=== PATIENT | male | born 1990 | race Two or more races ===

== ENCOUNTER 2025-03-06 11:05 | Inpatient (IN) | payer MEDICAID, OTHER ==
[~2025-03-06] VITALS: Ht 180.3 cm; Wt 162.4 kg
--- NOTE | 2025-03-06 11:25 | ED.PDOC ---
History of Present Illness HPI Comments 34-YEAR-OLD MALE WITH A CHIEF COMPLAINT OF A WOUND CHECK. PATIENT REPORTS ON FALLING ONTO A METAL TOOL LEAVING ABRASIONS ON HIS LEFT KNEE. PATIENT CAME IN WANTING TO GET A TETANUS SHOT IN TRIAGE THEY STATED THAT HE HAD HIGH BLOOD PRESSURE. DENIES CHILLS, FEVER, N/V/D, SOB, CP. NO OTHER ASSOCIATED SYMPTOMS, MODIFIERS, RECENT INJURIES OR SICK CONTACTS PRESENT AT THIS TIME. Chief Complaint: Wound Check Time Seen by MD: 11:30 Reviewed Notes: Nurses Notes, Medications, Allergies Allergies: Coded Allergies: NO KNOWN ALLERGIES (Unverified , 03/06/25) Information Source: Patient Mode of Arrival: Ambulatory Severity: Moderate Timing: Minutes Duration: Since onset Prehospital treatment: None Past Medical History PAST MEDICAL HISTORY: Denies Surgical History: Denies all surgeries Family History Family History: Reviewed,noncontributory to illness, Unknown Social History Smoker: Non-Smoker Alcohol: Denies ETOH Use Drugs: Denies Drug Use Lives In: Home Constitutional: denies: chills, diaphoresis, fatigue, fever, malaise, sweats, weakness, others EENTM: denies: blurred vision, double vision, ear bleeding, ear discharge, ear drainage, ear pain, ear ringing, eye pain, eye redness, hearing loss, mouth pain, mouth swelling, nasal discharge, nose bleeding, nose congestion, nose pain, photophobia, tearing, throat pain, throat swelling, voice changes, others Respiratory: denies: cough, hemoptysis, orthopnea, SOB at rest, shortness of breath, SOB with excertion, stridor, wheezing, others Cardiovascular: denies: chest pain, dizzy spells, diaphoresis, Dyspnea on exertion, edema, irregular heart beat, left arm pain, lightheadedness, palpitations, PND, syncope, others Gastrointestinal: denies: abdomen distended, abdominal pain, blood streaked bowels, constipated, diarrhea, dysphagia, difficulty swallowing, hematemesis, me ayaan, nausea, poor appetite, poor fluid intake, rectal bleeding, rectal pain, vomiting, others Genitourinary: denies: burning, dysuria, flank pain, frequency, hematuria, incontinence, penile discharge, penile sore, pain, testicle pain, testicle swelling, urgency, others Neurological: denies: dizziness, fainting, headache, left sided numbness, left sided weakness, numbness, paresthesia, pre-existing deficit, right sided numbness, right sided weakness, seizure, speech problems, tingling, tremors, weakness, others Musculoskeletal: denies: back pain, gout, joint pain, joint swelling, muscle pain, muscle stiffness, neck pain, others Integumetry: reports: others (ABRASION ON THE LEFT KNEE); denies: bruises, change in color, change in hair/nails, dryness, laceration, lesions, lumps, rash, wounds Allergic/Immunocompromised: denies: Difficulty Healing, Frequent Infections, Hives, Itching, others Hematologic/Lymphatic: denies: anemia, blood clots, easy bleeding, easy bruising, swollen glands, others Endocrine: denies: excessive hunger, excessive sweating, excessive thirst, excessive urination, flushing, intolerance to cold, intolerance to heat, unexplained weight gain, unexplained weight loss, others Psychiatric: denies: anxiety, bipolar disorder, depression, hopeless, panic disorder, schizophrenia, sleepless, suicidal, others All Other Systems: Reviewed and Negative Physical Exam General Appearance: No Apparent Distress, Normal HEENT: Normal ENT Inspection, Pharynx Normal, TMs Normal Neck: Full Range of Motion, Non-Tender, Normal, Normal Inspection Respiratory: Chest Non-Tender, Lungs Clear, No Accessory Muscle Use, No Respiratory Distress, Normal Breath Sounds Cardiovascular: No Edema, No JVD, No Murmur, No Gallop, Normal Peripheral Pulses, Regular Rate/Rhythm Breast Exam: Deferred Gastrointestinal: No Organomegaly, Non Tender, No Pulsatile Mass, Normal Bowel Sounds, Soft Genitalia: Deferred Pelvic: Deferred Rectal: Deferred Extremities: No calf tenderness, Normal capillary refill, Normal inspection, Normal range of motion, Non-tender, No pedal edema Musculoskeletal : Apperance: Normal Neurologic: Alert, environmental coordinator II-XII nml as Tested, No Motor Deficits, Normal Affect, Normal Mood, No Sensory Deficits Cerebellar Function: Normal Reflexes: Normal Skin: Dry, Normal Color, Warm Lymphatic: No Adenopathy Was a procedure done? Was a procedure done?: No Differential Dx Considerations may include: Hypertensive emergency, viral syndrome, diabetes, dehydration X-Ray, Labs, Meds, VS Vital Signs Date Time Temp Pulse Resp B/P (MAP) Pulse Ox O2 Delivery O2 Flow Rate FiO2 03/06/25 14:14 105 10 98 Room Air* 0 21 03/06/25 14:14 98.3 105 10 216/131 (159) 98 98.3 03/06/25 14:11 208/143 (164) 03/06/25 14:09 97.9 99 19 199/132 (154) 96 97.9 03/06/25 14:09 99 19 96 Room Air 03/06/25 14:00 107 03/06/25 13:53 223/149 03/06/25 11:06 98.7 108 17 205/121 97 98.7 Lab Test 03/06/25 13:22 Range/Units White Blood Count 11.2 H 4.4-10.8 10^3/uL Red Blood Count 6.34 H 4.5-5.90 10^6/uL Hemoglobin 16.3 13.5-17.5 g/dL Hematocrit 49.3 41.0-53.0 % Mean Corpuscular Volume 77.8 L 80.0-100.0 fL Mean Corpuscular Hemoglobin 25.7 L 28.0-32.0 pg Mean Corpuscular Hemoglobin Concent 33.0 32.0-36.0 g/dL Red Cell Distribution Width 14.2 11.8-14.3 % Platelet Count 308 140-450 10^3/uL Mean Platelet Volume 8.9 6.9-10.8 fL Neutrophils (%) (Auto) 75.6 37.0-80.0 % Lymphocytes (%) (Auto) 18.3 10.0-50.0 % Monocytes (%) (Auto) 4.6 0.0-12.0 % Eosinophils (%) (Auto) 1.3 0.0-7.0 % Basophils (%) (Auto) 0.2 0.0-2.0 % Neutrophils # (Auto) 8.4 1.6-8.6 10 ^3/uL Lymphocytes # (Auto) 2.0 0.4-5.4 10 ^3/uL Monocytes # (Auto) 0.5 0-1.3 10 ^3/uL Eosinophils # (Auto) 0.1 0-0.8 10 ^3/uL Basophils # (Auto) 0 0-0.2 10 ^3/uL Nucleated Red Blood Cells 0.1 % Sodium Level 135 L 136-145 mmol/L Potassium Level 3.1 L 3.5-5.1 mmol/L Chloride Level 96 L 98-107 mmol/L Carbon Dioxide Level 28 20-31 mmol/L Anion Gap 11 5-15 Blood Urea Nitrogen 6 L 9-23 mg/dL Creatinine 0.98 0.700-1.30 mg/dL Glomerular Filtration Rate Calc 104 >90 mL/min BUN/Creatinine Ratio 6.1 L 10.0-20.0 Serum Glucose 423 *H 74-106 mg/dL Calcium Level 9.7 8.7-10.4 mg/dL Troponin I High Sensitivity 20 </=54 ng/L Current Medications Medications (Trade) Dose Ordered Sig/Carla Route Start Time Stop Time Status Last Admin Diphtheria/ Tetanus/Acell Pertussis (Boostrix T-Dap) 0.5 ml ONCE ONCE IM 03/06/25 13:15 03/06/25 13:16 DC 03/06/25 13:51 Hydralazine HCl (Apresoline Injection) 10 mg ONCE ONCE IV 03/06/25 13:45 03/06/25 13:46 DC 03/06/25 13:53 Time of 1ST Reevaluation: 12:00 Reevaluation 1ST: Unchanged Patient Education/Counseling: Diagnosis, Treatment, Prognosis Family Education/Counseling: No Family Present SEPSIS Sepsis Screen Date sepsis recognized/suspect: Mar 06, 2025 Time Sepsis recognized/suspect: 1107 Recent Procedure: No On Antibiotic Therapy: No Respiratory Rate >20: No Heart Rate >90: Yes Temp<36 C (96.8 F) or >38.3 C: No SBP <90 or MAP <65 mmHG: No New Acute Mental Status Change: No Is the patient on CPAP, BIPAP,: No Physician Orders L Knee 3v Xray (03/06/25 13:01) Chest Portable (03/06/25 13:01) Troponin-I Hs (03/06/25 14:01) Troponin-I Hs (03/06/25 16:01) Electrocardigram (03/06/25 14:01) Electrocardigram (03/06/25 16:01) Head Without Contrast (03/06/25 13:34) Hydralazine Injection (Apresoline Inject (03/06/25 15:00) NS (03/06/25 15:00) Vital Signs Date Time Temp Pulse Resp B/P (MAP) Pulse Ox O2 Delivery O2 Flow Rate FiO2 03/06/25 14:14 105 10 98 Room Air* 0 21 03/06/25 14:14 98.3 105 10 216/131 (159) 98 98.3 03/06/25 14:11 208/143 (164) 03/06/25 14:09 97.9 99 19 199/132 (154) 96 97.9 03/06/25 14:09 99 19 96 Room Air 03/06/25 14:00 107 03/06/25 13:53 223/149 03/06/25 11:06 98.7 108 17 205/121 97 98.7 Laboratory Tests Test 03/06/25 13:22 White Blood Count 11.2 10^3/uL (4.4-10.8) H Medications Medications Dose Ordered Sig/Carla Route Start Time Stop Time Status Last Admin Dose Admin Diphtheria/ Tetanus/Acell Pertussis 0.5 ml ONCE ONCE IM 03/06/25 13:15 03/06/25 13:16 DC 03/06/25 13:51 Hydralazine HCl 10 mg ONCE ONCE IV 03/06/25 13:45 03/06/25 13:46 DC 03/06/25 13:53 Departure 1 Departure Time of Disposition: 14:59 (Patient presented with hypertension and symptoms concerning for hypertensive emergency. Patient is receiving iv blood pressure medications requiring intensive monitoring. Data: 1. I ordered and reviewed the result of at least 3 labs including a CBC, BMP, and Urinalysis. 2. I independently interpreted the following tests: CT Brain: Which appears benign. EKG which is Normal Sinus RhythmRisk:This patient has a high risk of morbidity due to further diagnostic testing or treatment and may suffer from an acute cardiac disorder. Workup reveals hypertensive emergency and patient should be admitted for further workup. and possible expert consultation. ) Impression: Primary Impression: Hypertensive emergency Additional Impressions: Abnormal head CT New onset type 2 diabetes mellitus Disposition: ADMITTED INPATIENT Admit to: Tele Condition: Guarded Critical Care Note Critical Care Time?: Yes Critical care comment: Hypertensive urgency Authorized and Performed by: Vianey Mullins MD Total critical care time: Approximately 39 minutes Due to a high probability of clinically significant, life threatening deterioration, the patient required my highest level of preparedness to inter vene emergently and I personally spent this critical care time directly and personally managing the patient. This critical care time included obtaining a history; examining the patient; pulse oximetry; ordering and review of studies; arranging urgent treatment with development of a management plan; evaluation of patient's response to treatment; frequent reassessment; and, discussions with other providers. This critical care time was performed to assess and manage the high probability of imminent, life-threatening deterioration that could result in multi-organ failure. It was exclusive of separately billable procedures and treating other patients and teaching time. Please see my other sections and the rest of the note for further information on patient assessment and treatment. Stability Stability form required: No I personally scribed for VIANEY MULLINS MD ([email or web address]) on 03/06/25 at 11:25. Electronically submitted by Gus Cesar ([email or web address]). VIANEY MULLINS MD Mar 06, 2025 11:25
[2025-03-06 13:40] LABS: Hematocrit 49.3 % (41.0-53.0); Hemoglobin 16.3 g/dL (13.5-17.5); Mean Corpuscular Hemoglobin 25.7 pg (28.0-32.0); Mean Corpuscular Volume 77.8 fL (80.0-100.0); Nucleated Red Blood Cells % 0.1 %
--- NOTE | 2025-03-06 13:42 | DVH ---
CLINICAL INDICATION: left knee pain TECHNIQUE: 3 radiographic views of the left knee were obtained. Comparison: None FINDINGS/IMPRESSION: There is no evidence of acute fracture or dislocation. The visualized joint space is well maintained. Trace left knee effusion. The alignment is anatomical. There is no radiopaque foreign body.
[2025-03-06 13:48] LABS: Anion Gap 11 (5-15); Calcium 9.7 mg/dL (8.7-10.4); Carbon Dioxide 28 mmol/L (20-31)
[2025-03-06 13:51] LABS: Chloride 96 mmol/L (98-107); Potassium 3.1 mmol/L (3.5-5.1); Sodium 135 mmol/L (136-145)
[2025-03-06] MEDS: TETANUS-DIPTH-ACEL PERTUSSIS 0.5ML SYR Tdap IM ONE (13:51)
[2025-03-06 13:53] LABS: BUN/Creatinine Ratio 6.1 (10.0-20.0)
[2025-03-06] MEDS: hydrALAZINE HCL 20 MG/ML VL IV ONE ×2 (13:53→15:19)
[2025-03-06 13:54] LABS: Blood Urea Nitrogen 6 mg/dL (9-23)
[2025-03-06 13:55] LABS: Glucose 423 mg/dL (74-106)
--- NOTE | 2025-03-06 13:58 | DVH ---
INDICATION: htn TECHNIQUE: Frontal view of the chest. COMPARISON: None FINDINGS: . The heart and mediastinal contours are grossly unremarkable. There is no evidence of pleural disea se. The lungs are clear. The bony structures of the chest are intact without fracture. IMPRESSION: 1. No evidence of acute disease.
[2025-03-06 14:14] VITALS: PULSE 105; RESP 10; O2SAT 98
--- NOTE | 2025-03-06 14:18 | DVH ---
EXAM: CT HEAD WITHOUT CONTRAST INDICATION: htn TECHNIQUE: CT images of the head were obtained without administration of IV contrast. CT scans at [facility] facility use dose modulation, iterative reconstruction, and/or weight based dosing when appropriate to reduce radiation dose to as low as reasonably achievable. COMPARISON: None FINDINGS: PARENCHYMA: No acute hemorrhage. There is no mass effect, midline shift, or herniation. There is pres ervation of the bui white differentiation. VENTRICLES: No hydrocephalus. EXTRA-AXIAL SPACES: No extra-axial fluid collections. OTHER: The bony structures are intact. Visualized portions of the paranasal sinuses and mastoid air cells are clear. prominent mass effect along the left aspect of the brainstem secondary to the right and left vertebral arteries correlate for underlying increased pressures along the vertebral basilar system IMPRESSION: 1. No CT evidence of an acute intracranial abnormality. 2. Prominent mass effect along the left aspect of the brainstem secondary to the right and left verte bral arteries correlate for underlying increased pressures along the vertebral basilar system.
--- NOTE | 2025-03-06 14:55 | ECG ---
[facility] Test Date: 2025-03-06 Test Time: 14:00:05 Pat Name: ALETA COREY Department: Room: Gender: M Social Media Analyst: KAMERON : 1990 Requested By: VIANEY TORRES Order Number: [id number] Reading MD: Baudilio Victor Measurements Intervals [place] Rate: 107 P: 42 [place]: 185 QRS: -2 QRSD: 101 T: -6 QT: 339 QTc: 453 Interpretive Statements Sinus tachycardia Borderline T abnormalities, inferior leads Electronically Signed On 03-06-2025 16:40:35 PDT by Baudilio Victor Please click the below link to view image of tracing.
[2025-03-06] MEDS: SODIUM CHLORIDE 0.9% 1,000 ML IV ONE (15:19)
[2025-03-06] MEDS ORDERED: DEXTROSE (50%) 50ML SYRG IV PRN (17:15)
[2025-03-06] MEDS ORDERED: ACETAMINOPHEN 325 MG TAB PO PRN (17:15)
--- NOTE | 2025-03-06 17:24 | DVHHP2 ---
IMELDAORLANDOAAMIR RESIDENT 03/06/25 1724: History of Present Illness History of Present Illness Patient is 34 years old male with no significant past medical history came to the ER status post fall last night. As per patient he tripped on a to and fell and hurt his left knee had some ablation. He came for wound care and also to get tetanus vaccine. On arrival patient's blood pressure was elevated 205/121, later on 223/121, pulse 108. EKG sinus tachycardia. Patient denied any headache, dizziness, dysarthria, change in vision, gait abnormality, any arm or leg weakness or bowel or bladder incontinence. Patient's mother reported when patient was 19 years old patient's blood pressure was elevated and physician prescribed medication but patient never took it. Patient down check blood pressure at home either. Initial lab workup revealed WBC 11.2, MCV 77.8, potassium 3.8, sodium 135, blood sugar 423. CT head- Prominent mass effect along the left aspect of the brainstem secondary to the right and left vertebral arteries correlate for underlying increased pressures along the vertebral basilar system. CXR- No evidence of acute disease. X-ray left knee- There is no evidence of acute fracture or dislocation. PMH-none PSH- none Family history-mother has hypertension, diabetes Allergy- NKDA Personal History/ Social History- denies smoking/alcoholism/drug abuse, lives family PCP- Lalit Andrade Review of Systems Review of Systems Cardiovascular- deny acute chest pain or shortness of breath or cough or palpitation Respiratory denies cough or short of breath or wheezing Gastrointestinal- denies any rectal bleeding, nausea or vomiting Musculoskeletal-denies acute joint swelling or tenderness or redness Neurological- denies acute dysarthria, dysphagia, change in vision Psychiatry- denies depression or SI or HI Skin- denies acute rash or purpura Allergies: Coded Allergies: NO KNOWN ALLERGIES (Unverified , 03/06/25) Medications Current Medications Medications Dose Ordered Sig/Carla Route Start Time Stop Time Status Last Admin Dose Admin Sodium Chloride 10 ml Q8HR IV 03/06/25 22:00 UNV Acetaminophen 650 mg Q6HP PRN PO 03/06/25 17:15 UNV Nifedipine 30 mg DAILY PO 03/06/25 17:15 UNV Diagnostic Test (Pha) 1 strip ACHS 03/06/25 22:00 UNV Insulin Human Regular HS SC 03/06/25 22:00 UNV Insulin Human Regular AC SC 03/07/25 07:00 UNV Dextrose 50 ml UD PRN IV 03/06/25 17:15 UNV Exam Vital Signs Vital Signs Date Time Temp Pulse Resp B/P (MAP) Pulse Ox O2 Delivery O2 Flow Rate FiO2 03/06/25 16:00 113 13 182/117 (138) 97 03/06/25 14:14 Room Air* 0 21 03/06/25 14:14 98.3 98.3 Exam General examination- HEENT- PEERLA, no acute nasal discharge Cardiovascular- S1-S2 audible, rate and rhythm regular, no murmur Respiratory- CTAB, no wheeze or rhonchi Gastrointestinal-nontender, bowel sound+. Nondistended Musculoskeletal-no acute joint swelling or tenderness or redness Lower extremity- left knee abrasion Neurological- cranial nerves intact, no acute dysarthria or dysphagia Psychiatry- denies depression or SI or HI Skin- no acute rash or purpura Labs/Xrays Labs Test 03/06/25 16:28 03/06/25 13:22 Range/Units Troponin I High Sensitivity 19 </=54 ng/L White Blood Count 11.2 H 4.4-10.8 10^3/uL Red Blood Count 6.34 H 4.5-5.90 10^6/uL Hemoglobin 16.3 13.5-17.5 g/dL Hematocrit 49.3 41.0-53.0 % Mean Corpuscular Volume 77.8 L 80.0-100.0 fL Mean Corpuscular Hemoglobin 25.7 L 28.0-32.0 pg Mean Corpuscular Hemoglobin Concent 33.0 32.0-36.0 g/dL Red Cell Distribution Width 14.2 11.8-14.3 % Platelet Count 308 140-450 10^3/uL Mean Platelet Volume 8.9 6.9-10.8 fL Neutrophils (%) (Auto) 75.6 37.0-80.0 % Lymphocytes (%) (Auto) 18.3 10.0-50.0 % Monocytes (%) (Auto) 4.6 0.0-12.0 % Eosinophils (%) (Auto) 1.3 0.0-7.0 % Basophils (%) (Auto) 0.2 0.0-2.0 % Neutrophils # (Auto) 8.4 1.6-8.6 10 ^3/uL Lymphocytes # (Auto) 2.0 0.4-5.4 10 ^3/uL Monocytes # (Auto) 0.5 0-1.3 10 ^3/uL Eosinophils # (Auto) 0.1 0-0.8 10 ^3/uL Basophils # (Auto) 0 0-0.2 10 ^3/uL Nucleated Red Blood Cells 0.1 % Sodium Level 135 L 136-145 mmol/L Potassium Level 3.1 L 3.5-5.1 mmol/L Chloride Level 96 L 98-107 mmol/L Carbon Dioxide Level 28 20-31 mmol/L Anion Gap 11 5-15 Blood Urea Nitrogen 6 L 9-23 mg/dL Creatinine 0.98 0.700-1.30 mg/dL Glomerular Filtration Rate Calc 104 >90 mL/min BUN/Creatinine Ratio 6.1 L 10.0-20.0 Serum Glucose 423 *H 74-106 mg/dL Calcium Level 9.7 8.7-10.4 mg/dL SEPSIS Sepsis Screen Date sepsis recognized/suspect: Mar 06, 2025 Time Sepsis recognized/suspect: 1106 Recent Procedure: No On Antibiotic Therapy: No Respiratory Rate >20: No Heart Rate >90: Yes Temp<36 C (96.8 F) or >38.3 C: No SBP <90 or MAP <65 mmHG: No New Acute Mental Status Change: No Is the patient on CPAP, BIPAP,: No Physician Orders L Knee 3v Xray (03/06/25 13:01) Chest Portable (03/06/25 13:01) Electrocardigram (03/06/25 13:01) Electrocardigram (03/06/25 14:01) Electrocardigram (03/06/25 16:01) Head Without Contrast (03/06/25 13:34) Admit (03/06/25 17:05) Allergies (03/06/25 17:05) Sodium Chloride Lock (Saline Lock Ns) (03/06/25 22:00) Complete Blood Count (03/07/25 04:00) Comprehensive Metabolic Panel (03/07/25 04:00) Cardiac Diet-2gna,Lofat,Lochol (03/06/25 Dinner) Echo 2d Mode Cardiac Dop (03/06/25 17:05) Acetaminophen Tablet (Tylenol Tablet) (03/06/25 17:15) Notify Of Changes From Base (03/06/25 17:05) Geodetic Survey Director For 24 Hours (03/06/25 17:05) Labetalol Hcl (Labetalol Hcl) (03/06/25 17:15) Nifedipine Er (Procardia Xl (Time-Releas (03/06/25 17:15) Glucose Blood (Accu-Chek Comfort Curve T (03/06/25 22:00) Insulin R (Human) (Insulin R) (03/06/25 22:00) Insulin R (Human) (Insulin R) (03/07/25 07:00) Dextrose 50% Syringe (03/06/25 17:15) Thyroid Stimulating Hormone (03/06/25 17:10) Drug Screen (03/06/25 17:10) Hepatic Panel (03/06/25 17:10) Metanephrines Frac Free Plasma (03/06/25 17:10) Cortisol Pm (03/06/25 17:10) * Neurology Consult (03/06/25 17:15) Vital Signs Date Time Temp Pulse Resp B/P (MAP) Pulse Ox O2 Delivery O2 Flow Rate FiO2 03/06/25 16:00 113 13 182/117 (138) 97 03/06/25 15:19 193/126 03/06/25 14:14 105 10 98 Room Air* 0 21 03/06/25 14:14 98.3 105 10 216/131 (159) 98 98.3 03/06/25 14:11 208/143 (164) 03/06/25 14:09 97.9 99 19 199/132 (154) 96 97.9 03/06/25 14:09 99 19 96 Room Air 03/06/25 14:00 107 03/06/25 13:53 223/149 03/06/25 11:06 98.7 108 17 205/121 97 98.7 Laboratory Tests Test 03/06/25 13:22 White Blood Count 11.2 10^3/uL (4.4-10.8) H Medications Medications Dose Ordered Sig/Carla Route Start Time Stop Time Status Last Admin Dose Admin Diphtheria/ Tetanus/Acell Pertussis 0.5 ml ONCE ONCE IM 03/06/25 13:15 03/06/25 13:16 DC 03/06/25 13:51 0.5 ML Hydralazine HCl 10 mg ONCE ONCE IV 03/06/25 13:45 03/06/25 13:46 DC 03/06/25 13:53 10 MG Hydralazine HCl 20 mg ONCE ONCE IV 03/06/25 15:00 03/06/25 15:06 DC 03/06/25 15:19 20 MG Sodium Chloride 1,000 ml @ 1,000 mls/hr Q1H ONCE IV 03/06/25 15:00 03/06/25 15:59 DC 03/06/25 15:19 1,000 MLS/HR Assessment/Plan Assessment/Plan Assessment and plan # hypertensive emergency # left-sided brain mass effect-CT scan finding -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 -ordered neurology consult stat -ordered Doppler study of the renal artery to rule out renal artery stenosis -ordered labetalol stat -ordered nifedipine ER 30 mg p.o. daily -neuro check q.4 hours Patient was started on nicardipine drip to maintain blood pressure< 140. -monitor vitals -transferred patient to ICU # mechanical fall # left knee abrasion due to above -x-ray knee no acute fracture -patient had Tdap vaccine at the ER -monitor clinically # hyperglycemia -ordered insulin sliding scale # obesity -patient is counseled about the effect of obesity on health, weight reduction, physical activity, low-fat diet Cardiac diet Goals of care, Code status full code ; discussed with >15 minutes PUD prophylaxis: Pantoprazole DVT prophylaxis: Patient ambulating Plan discussed with Dr. Garner , nursing staff, Total time spent on patient evaluation, chart review, assessment and plan, discussion discussion >35 minutes Plan discussed with: Patient, Other (RN, MOTHER, BROTHER ) My Orders Orders - PAULA SEGURA RESIDENT Procedure Category Date Status Time Admit ADMIT 03/06/25 Transmitted 17:05 Allergies JESSY 03/06/25 In Process 17:05 Sodium Chloride Lock PHA 03/06/25 Logged (Saline Lock Ns) 22:00 Complete Blood Count LAB 03/07/25 Verified 04:00 Comprehensive LAB 03/07/25 Verified Metabolic Panel 04:00 Cardiac DIET 03/06/25 Transmitted Diet-2gna,Lofat,Lochol Dinner Echo 2d Mode Cardiac US 03/06/25 Logged DOP 17:05 Acetaminophen Tablet PHA 03/06/25 Logged (Tylenol Tablet) 17:15 Notify Of Changes JESSY 03/06/25 In Process From Base 17:05 Geodetic Survey Director For [facility] 03/06/25 In Process 24 Hours 17:05 Labetalol Hcl PHA 03/06/25 Logged (Labetalol Hcl) 17:15 Nifedipine Er PHA 03/06/25 Logged (Procardia Xl 17:15 Glucose Blood PHA 03/06/25 Logged (Accu-Chek Comfort 22:00 Insulin R (Human) PHA 03/06/25 Logged (Insulin R) 22:00 Insulin R (Human) PHA 03/07/25 Logged (Insulin R) 07:00 Dextrose 50% Syringe PHA 03/06/25 Logged 17:15 Thyroid Stimulating LAB 03/06/25 Logged Hormone 17:10 Drug Screen LAB 03/06/25 Logged 17:10 Hepatic Panel LAB 03/06/25 Logged 17:10 Metanephrines Frac LAB 03/06/25 Logged Free Plasma 17:10 Cortisol Pm LAB 03/06/25 Logged 17:10 * Neurology Consult CONS 03/06/25 Transmitted 17:15 Date of Service: Mar 06, 2025 Billing Provider: JOSE L GARNER MD Common Visit Codes: [id number] INP/OBS CARE (HIGH) Secondary Visit Codes: [id number] CARE PLAN 30 MINUTES JOSE L GARNER MD 03/07/25 1543: Review of Systems Allergies: Coded Allergies: NO KNOWN ALLERGIES (Unverified , 03/06/25) Date of Service: Mar 06, 2025 Billing Provider: JOSE L GARNER MD Common Visit Codes: NOT BILLABLE (billed on my separate note) PAULA SEGURA RESIDENT Mar 06, 2025 17:24 JOSE L GARNER MD Mar 07, 2025 15:43
[2025-03-06] MEDS: LABETALOL HCL 20 MG/4 ML VL IV ONE (18:01)
--- NOTE | 2025-03-06 18:01 | DVHPN2 ---
Assessment/Plan Assessment/Plan ICU note asymptomatic, elevated bp, hyperglycemia, CT with mass effect 2/2 b/l vert arteries, concern for vbd assessment and plan VBD? HTN emergency hyperglycemia s/p mech fall admit to ICU correct BS and ISS MRI/MRA neuro consult stat neurochecks nicardipine maintain sbp <140 condition critical full code rest as per resident note crit care time 95 minutes Plan discussed with: Other My Orders Orders - JOSE L CERVANTES MD Procedure Category Date Status Time Transfer Orders XFER 03/06/25 Transmitted 17:55 Nicardipine (Cardene) PHA 03/06/25 Transmitted Drip 18:00 Communication Order ORDERS 03/06/25 Transmitted 17:55 Insulin Lispro PHA 03/06/25 Transmitted (Human) (Humalog) 18:00 Insulin Lispro PHA 03/07/25 Transmitted (Human) (Humalog) 07:00 Neuro Checks Q2hrs JESSY 03/06/25 Verified 17:55 Date of Service: Mar 06, 2025 Billing Provider: JOSE L CERVANTES MD Common Visit Codes: [id number] CARE 30-74 MIN, [id number] CARE-EACH +30MIN JOSE L CERVANTES MD Mar 06, 2025 18:01
[2025-03-06] MEDS: INSULIN LISPRO (HUMAN) 100 UNITS/ML ML SC ONE (18:44)
[2025-03-06 18:57] LABS: Albumin 4.0 g/dL (3.2-4.8); Alkaline Phosphatase 104.0 U/L (46-116); Bilirubin, Direct 0.1 mg/dL (<0.3); Bilirubin, Total 0.4 mg/dL (0.2-1.0); Total Protein 7.6 g/dL (5.7-8.2)
[2025-03-06 19:04] LABS: Alanine Aminotransferase 69.0 U/L (7-40)
--- NOTE | 2025-03-06 19:09 | DVH ---
RENAL DUPLEX ULTRASOUND REASON FOR EXAM: HYPERTENSIVE EMERGENCY COMPARISON: None TECHNIQUE: Grayscale imaging of both kidneys is performed. This was followed by duplex scanning of arterial inflow and venous outflow of both kidneys. FINDINGS: RIGHT: The kidney is normal in size and echogenicity and measures 13.1 cm. No mass lesion or hydronep hrosis is seen. The main renal artery peak systolic velocity is normal and measures 94.7 cm/s. The r enal artery/aorta ratio is not elevated. Arcuate artery restive indices (RI) measure 0.8, 0.5 and 0.4 in the superior, mid and inferior aspects, respectively. The renal vein is patent. LEFT: The kidney is normal in size and echogenicity and measures 12.8 cm. No mass lesion or hydroneph rosis is seen. The main renal artery peak systolic velocity is normal and measures 69.8 cm/s. The re nal artery/aorta ratio is not elevated. Arcuate artery restive indices (RI) measure 0.5, 0.5 and 0.5 in the superior, mid and inferior aspects, respectively. The renal vein is patent. Aorta peak systolic velocity 93.2 cm/sec. The urinary bladder is not visualized. IMPRESSION: No evidence of renal artery stenosis
[2025-03-06 19:27] LABS: Magnesium 1.7 mg/dL (1.6-2.6)
[2025-03-06 19:30] VITALS: PULSE 121; RESP 18; O2SAT 97
[2025-03-06] MEDS: IOHEXOL 350 MG/ML 100ML IJ ONE (19:33)
--- NOTE | 2025-03-06 19:42 | DVH ---
INDICATION: RULE OUT VERTEBROBASILAR ARTERY MALFORMATION/CYST COMPARISON: CT HEAD WITHOUT CONTRAST on DOS: 03/06/25, XR MANDIBLE COMPLETE on DOS: 10/02/22 TECHNIQUE: CTA head without and with intravenous contrast. CTA neck with intravenous contrast. 3D image postprocessing was performed on a dedicated workstation and images were used for interpretation and reporting. Radiation Dose Information: CT Dose: CTDI volume is 25.88 mGy. Dose-length product is 855.59 mGy*cm FINDINGS: CTA head: There is normal enhancement of the visualized distal internal carotid, anterior and middle cerebral a rteries. There is a normal anterior communicating artery complex. There are bilateral posterior com municating arteries. The vertebral, basilar, cerebellar and posterior cerebral arteries are within n ormal limits. The early parenchymal enhancement is grossly unremarkable. The visualized intracrania l venous structures are grossly unremarkable. CTA neck: The visualized thoracic aortic arch and proximal great vessels are unremarkable. The left common, internal and external carotid arteries are within normal limits. The right common, internal and external carotid arteries are within normal limits. The cervical segments of the right and left vertebral arteries are within normal limits. The limited visualized lung apices are clear. The surrounding soft tissues and osseous structures ar e otherwise unremarkable. IMPRESSION: 1. No evidence of hemodynamically significant intracranial stenosis, proximal occlusion or aneurysm. 2. No evidence of hemodynamically significant cervical stenosis or dissection. All CT scans at this medical facility are performed using dose modulation techniques as appropriate t o a performed exam including the following: Automated exposure control was utilized; Adjustment of th e MA And/or KV according to patient size; And use of iterative reconstruction technique.
--- NOTE | 2025-03-06 19:54 | DVHDSRES ---
Discharge Summary Date of Admission Resident Creating Document: [facility] INT Mar 06, 2025 at 17:05 Date of Discharge: Mar 06, 2025 Admitting Diagnosis Hypertensive emergency Vertebrobasilar arterial malformation Hyperglycemia Labs/Diagnostic Data: Laboratory Results Test 03/06/25 19:30 03/06/25 18:36 03/06/25 18:08 03/06/25 16:48 POC Glucose 282 mg/dl (70-106) Phosphorus Level 2.6 mg/dL (2.4-5.1) Magnesium Level 1.7 mg/dL (1.6-2.6) Total Bilirubin 0.4 mg/dL (0.2-1.0) Direct Bilirubin 0.1 mg/dL (<0.3) Aspartate Amino Transferase (AST) 47 U/L (13-40) Alanine Aminotransferase (ALT) 69 U/L (7-40) Alkaline Phosphatase 104 U/L (46-116) Total Protein 7.6 g/dL (5.7-8.2) Albumin 4.0 g/dL (3.2-4.8) Thyroid Stimulating Hormone (TSH) 0.96 uIU/mL (0.55-4.78) Test 03/06/25 16:28 03/06/25 13:22 Troponin I High Sensitivity 19 ng/L (</=54) White Blood Count 11.2 10^3/uL (4.4-10.8) Red Blood Count 6.34 10^6/uL (4.5-5.90) Hemoglobin 16.3 g/dL (13.5-17.5) Hematocrit 49.3 % (41.0-53.0) Mean Corpuscular Volume 77.8 fL (80.0-100.0) Mean Corpuscular Hemoglobin 25.7 pg (28.0-32.0) Mean Corpuscular Hemoglobin Concent 33.0 g/dL (32.0-36.0) Red Cell Distribution Width 14.2 % (11.8-14.3) Platelet Count 308 10^3/uL (140-450) Mean Platelet Volume 8.9 fL (6.9-10.8) Neutrophils (%) (Auto) 75.6 % (37.0-80.0) Lymphocytes (%) (Auto) 18.3 % (10.0-50.0) Monocytes (%) (Auto) 4.6 % (0.0-12.0) Eosinophils (%) (Auto) 1.3 % (0.0-7.0) Basophils (%) (Auto) 0.2 % (0.0-2.0) Neutrophils # (Auto) 8.4 10 ^3/uL (1.6-8.6) Lymphocytes # (Auto) 2.0 10 ^3/uL (0.4-5.4) Monocytes # (Auto) 0.5 10 ^3/uL (0-1.3) Eosinophils # (Auto) 0.1 10 ^3/uL (0-0.8) Basophils # (Auto) 0 10 ^3/uL (0-0.2) Nucleated Red Blood Cells 0.1 % Sodium Level 135 mmol/L (136-145) Potassium Level 3.1 mmol/L (3.5-5.1) Chloride Level 96 mmol/L (98-107) Carbon Dioxide Level 28 mmol/L (20-31) Anion Gap 11 (5-15) Blood Urea Nitrogen 6 mg/dL (9-23) Creatinine 0.98 mg/dL (0.700-1.30) Glomerular Filtration Rate Calc 104 mL/min (>90) BUN/Creatinine Ratio 6.1 (10.0-20.0) Serum Glucose 423 mg/dL (74-106) Calcium Level 9.7 mg/dL (8.7-10.4) Other Laboratory Tests 03/06/25 13:22 Brief Hx & Hospital Course: Patient is 34 years old male with no significant past medical history came to the ER status post fall last night. As per patient he tripped on a to and fell and hurt his left knee had some ablation. He came for wound care and also to get tetanus vaccine. On arrival patient's blood pressure was elevated 205/121, later on 223/121, pulse 108. EKG sinus tachycardia. Patient denied any headache, dizziness, dysarthria, change in vision, gait abnormality, any arm or leg weakness or bowel or bladder incontinence. Patient's mother reported when p atient was 19 years old patient's blood pressure was elevated and physician prescribed medication but patient never took it. Patient down check blood pressure at home either. Initial lab workup revealed WBC 11.2, MCV 77.8, potassium 3.8, sodium 135, blood sugar 423. CT head- Prominent mass effect along the left aspect of the brainstem secondary to the right and left vertebral arteries correlate for underlying increased pressures along the vertebral basilar system. CXR- No evidence of acute disease. X-ray left knee- There is no evidence of acute fracture or dislocation. Neurology consultation was done with Dr. Ninfa Sun, recommended for CTA of the head and neck and also MRI of the brain. Also recommended to transfer the patient to higher level of care for possible surgical intervention for suspected vascular brain formation. Provider spoke to Dr. Quintero from [facility] ICU, recommended to transfer the patient to ICU at [facility]. Operations or Procedures [place] [address] Ph: [phone] DIAGNOSTIC IMAGING Diagnostic Imaging Report : [id number] Signed PATIENT: ALETA COREY ACCT: [id number] UNIT: [id number] : 1990 LOC: OVERFLOW ROOM / BED: [address] [place] [address] AGE / SEX: 34 / M ADM STATUS: ADM IN SERVICE 43 ORDERING PHYSICIAN: PAULA SEGURA RESIDENT PROCEDURE(s): [place] - ANGIO HEAD/Neck REASON: RULE OUT VERTEBROBASILAR ARTERY MALFORMATION/CYST ORDER NUMBER(s): [id number], ACCESSION NUMBER(s): [id number] INDICATION: RULE OUT VERTEBROBASILAR ARTERY MALFORMATION/CYST COMPARISON: CT HEAD WITHOUT CONTRAST on DOS: 03/06/25, XR MANDIBLE COMPLETE on DOS: 10/02/22 TECHNIQUE: CTA head without and with intravenous contrast. CTA neck with intravenous contrast. 3D image postprocessing was performed on a dedicated workstation and images were used for interpretation and reporting. Radiation Dose Information: CT Dose: CTDI volume is 25.88 mGy. Dose-length product is 855.59 mGy*cm FINDINGS: CTA head: There is normal enhancement of the visualized distal internal carotid, anterior and middle cerebral arteries. There is a normal anterior communicating artery complex. There are bilateral posterior communicating arteries. The vertebral, basilar, cerebellar and posterior cerebral arteries are within normal limits. The early parenchymal enhancement is grossly unremarkable. The visualized intracranial venous structures are grossly unremarkable. CTA neck: The visualized thoracic aortic arch and proximal great vessels are unremarkable. The left common, internal and external carotid arteries are within normal limits. The right common, internal and external carotid arteries are within normal limits. The cervical segments of the right and left vertebral arteries are within normal limits. The limited visualized lung apices are clear. The surrounding soft tissues and osseous structures are otherwise unremarkable. IMPRESSION: 1. No evidence of hemodynamically significant intracranial stenosis, proximal occlusion or aneurysm. 2. No evidence of hemodynamically significant cervical stenosis or dissection. All CT scans at this medical facility are performed using dose modulation techniques as appropriate to a performed exam including the following: Automated exposure control was utilized; Adjustment of the MA And/or KV according to patient size; And use of iterative reconstruction technique. ATED BY: NINOSKA ARAUJO MD DICTATED DATE/TIME: 03/06/251938 SIGNED BY: NINOSKA ARAUJO MD SIGNED DATE/TIME: 03/06/251938 CC: [place] [address] Ph: [phone] DIAGNOSTIC IMAGING Diagnostic Imaging Report : [id number] Signed PATIENT: ALETA COREY ACCT: [id number] UNIT: [id number] : 1990 LOC: ER ROOM / BED: / AGE / SEX: 34 / M ADM STATUS: REG ER SERVICE 1334 ORDERING PHYSICIAN: VIANEY TORRES MD PROCEDURE(s): HWOCT - HEAD WITHOUT CONTRAST REASON: htn ORDER NUMBER(s): [id number], ACCESSION NUMBER(s): [id number] EXAM: CT HEAD WITHOUT CONTRAST INDICATION: htn TECHNIQUE: CT images of the head were obtained without administration of IV contrast. CT scans at this facility use dose modulation, iterative reconstruction, and/or weight based dosing when appropriate to reduce radiation dose to as low as reasonably achievable. COMPARISON: None FINDINGS: PARENCHYMA: No acute hemorrhage. There is no mass effect, midline shift, or herniation. There is preservation of the bui white differentiation. VENTRICLES: No hydrocephalus. EXTRA-AXIAL SPACES: No extra-axial fluid collections. OTHER: The bony structures are intact. Visualized portions of the paranasal sinuses and mastoid air cells are clear. prominent mass effect along the left aspect of the brainstem secondary to the right and left vertebral arteries correlate for underlying increased pressures along the vertebral basilar system IMPRESSION: 1. No CT evidence of an acute intracranial abnormality. 2. Prominent mass effect along the left aspect of the brainstem secondary to the right and left vertebral arteries correlate for underlying increased pressures along the vertebral basilar system. ATED BY: NINOSKA ARAUJO MD DICTATED DATE/TIME: 03/06/25 141 SIGNED BY: NINOSKA ARAUJO MD SIGNED DATE/TIME: 03/06/251415 CC: [place] [address] Ph: [phone] DIAGNOSTIC IMAGING Diagnostic Imaging Report : [id number] Signed PATIENT: ALETA COREY ACCT: [id number] UNIT: [id number] : 1990 LOC: OVERFLOW ROOM / BED: [address] [place] [address] AGE / SEX: 34 / M ADM STATUS: ADM IN SERVICE 50 ORDERING PHYSICIAN: PAULA SEGURA RESIDENT PROCEDURE(s): RENARTLMTD - RENAL ARTERY LMTD REASON: HYPERTENSIVE EMERGENCY ORDER NUMBER(s): [id number], ACCESSION NUMBER(s): [id number] RENAL DUPLEX ULTRASOUND REASON FOR EXAM: HYPERTENSIVE EMERGENCY COMPARISON: None TECHNIQUE: Grayscale imaging of both kidneys is performed. This was followed by duplex scanning of arterial inflow and venous outflow of both kidneys. FINDINGS: RIGHT: The kidney is normal in size and echogenicity and measures 13.1 cm. No mass lesion or hydronephrosis is seen. The main renal artery peak systolic velocity is normal and measures 94.7 cm/s. The renal artery/aorta ratio is not elevated. Arcuate artery restive indices (RI) measure 0.8, 0.5 and 0.4 in the superior, mid and inferior aspects, respectively. The renal vein is patent. LEFT: The kidney is normal in size and echogenicity and measures 12.8 cm. No mass lesion or hydronephrosis is seen. The main renal artery peak systolic velocity is normal and measures 69.8 cm/s. The renal artery/aorta ratio is not elevated. Arcuate artery restive indices (RI) measure 0.5, 0.5 and 0.5 in the superior, mid and inferior aspects, respectively. The renal vein is patent. Aorta peak systolic velocity 93.2 cm/sec. The urinary bladder is not visualized. IMPRESSION: No evidence of renal artery stenosis ATED BY: KALI BUTLER MD DICTATED DATE/TIME: 03/06/251906 SIGNED BY: KALI BUTLER MD SIGNED DATE/TIME: 03/06/251906 CC: [place] [address] Ph: [phone] DIAGNOSTIC IMAGING Diagnostic Imaging Report : [id number] Signed PATIENT: ALETA COREY ACCT: [id number] UNIT: [id number] : 1990 LOC: ER ROOM / BED: / AGE / SEX: 34 / M ADM STATUS: REG ER SERVICE 1301 ORDERING PHYSICIAN: VIANEY TORRES MD PROCEDURE(s): LKNE3 - L KNEE 3V XRAY REASON: left knee pain ORDER NUMBER(s): [id number], ACCESSION NUMBER(s): [id number] CLINICAL INDICATION: left knee pain TECHNIQUE: 3 radiographic views of the left knee were obtained. Comparison: None FINDINGS/IMPRESSION: There is no evidence of acute fracture or dislocation. The visualized joint space is well maintained. Trace left knee effusion. The alignment is anatomical. There is no radiopaque foreign body. ATED BY: BRISEYDA CASTELAN MD DICTATED DATE/TIME: 03/06/25 133 SIGNED BY: BRISEYDA CASTELAN MD SIGNED DATE/TIME: 03/06/251338 CC: [address] [id number] Ph: [phone] DIAGNOSTIC IMAGING Diagnostic Imaging Report : [id number] Signed PATIENT: ALETA COREY ACCT: [id number] UNIT: [id number] : 1990 LOC: ER ROOM / BED: / AGE / SEX: 34 / M ADM STATUS: REG ER SERVICE 1301 ORDERING PHYSICIAN: VIANEY TORRES MD PROCEDURE(s): CXRP - CHEST PORTABLE REASON: htn ORDER NUMBER(s): [id number], ACCESSION NUMBER(s): [id number] INDICATION: htn TECHNIQUE: Frontal view of the chest. COMPARISON: None FINDINGS: . The heart and mediastinal contours are grossly unremarkable. There is no evidence of pleural disease. The lungs are clear. The bony structures of the chest are intact without fracture. IMPRESSION: 1. No evidence of acute disease. 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 Patient was counseled about treatment plan, medications, possible side effects, patientverbalized understanding. All questions were answered to the best of my ability. This discharge took greater then 30 minutes in planning, reviewing documentation, counseling the patient, and discussing with other team members." ASSESSMENT ASSESSMENT Assessment Date of Service: Mar 06, 2025 Billing Provider: JOSE L CERVANTES MD Common Visit Codes: [id number] CARE 30-74 MIN PAULA SEGURA RESIDENT Mar 06, 2025 19:54 JOSE L CERVANTES MD Mar 07, 2025 15:43
[2025-03-06 21:00] VITALS: BP 162/87; PULSE 117; RESP 19; TEMP 97.8; O2SAT 97
[2025-03-06] MEDS ORDERED: ACCU-CHEK COMFORT CURVE STRIP VI SCH (22:00)
[2025-03-06] MEDS ORDERED: InsuLIN REG 1unit/0.01ml Soln (100units/ml) SC SCH (22:00)
[2025-03-06] MEDS ORDERED: SODIUM CHLOR 0.9% PF (SALINE LOCK) 10ML VIAL/SYR IV SCH (22:00)
[2025-03-07] MEDS ORDERED: PANTOPRAZOLE 40 MG TAB PO SCH (06:00)
[2025-03-07] MEDS ORDERED: InsuLIN REG 1unit/0.01ml Soln (100units/ml) SC SCH (07:00)
[2025-03-07] MEDS ORDERED: INSULIN LISPRO (HUMAN) 100 UNITS/ML ML SC SCH (07:00)
== END 2025-03-06 21:20 | disposition short-term general hospital (02) | DRG 384 ==
LOC: ER 11:05 → OVERFLOW 17:05
PROVIDERS: ADMIT Internal Medicine; ATTEND Emergency Medicine
PROC: 3E0234Z Introduction of Serum, Toxoid and Vaccine into Muscle, Percutaneous Approach (ICD-10-PCS; principal; 2025-03-06)
DX: S80.212A Abrasion, left knee, initial encounter (principal); I16.1 Hypertensive emergency; G45.0 Vertebro-basilar artery syndrome; E11.65 Type 2 diabetes mellitus with hyperglycemia; E66.9 Obesity, unspecified; G93.9 Disorder of brain, unspecified; W01.0XXA Fall on same level from slipping, tripping and stumbling without subsequent striking against object, initial encounter; Z68.42 Body mass index [BMI] 45.0-49.9, adult; Z82.49 Family history of ischemic heart disease and other diseases of the circulatory system; Z83.3 Family history of diabetes mellitus; Y93.89 Activity, other specified; Y92.89 Other specified places as the place of occurrence of the external cause; Y99.8 Other external cause status; Z23 Encounter for immunization
CPT/HCPCS: 36415; 70450; 70496; 70498; 71045; 73562; 80048; 80076; 82962; 83735; 83835; 83930; 84100; 84443; 84484; 85025; 90715; 93005; 93976; 96361; 96372; 96374; 96375; 99291; G0378; J1815